=== PATIENT | female | born 1945 | race African-American/Black ===

== ENCOUNTER 2020-03-20 20:21 | Inpatient (IN) | payer OTHER ==
[~2020-03-20] VITALS: Ht 160 cm; Wt 74.8 kg
--- NOTE | 2020-03-20 20:30 | NUR ---
Dr. Biggs at bedside for MSE.
--- NOTE | 2020-03-20 20:33 | NUR ---
Called Yaquelin CHINCHILLA PET for pt psych evaluation.
[2020-03-20] MEDS ORDERED: ACET-2605 PO (20:48)
[2020-03-20] MEDS ORDERED: LOSA100T3 PO (20:48)
[2020-03-20] MEDS ORDERED: AMLO5TAB4 PO (20:48)
[2020-03-20] MEDS ORDERED: POTA20TA10 PO (20:48)
[2020-03-20] MEDS ORDERED: CEPH-569 PO (20:48)
[2020-03-20] MEDS ORDERED: FAMO-132 PO (20:48)
[2020-03-20 20:53] LABS: CREATININE 1.3 mg/dL (0.6-1.3); POTASSIUM 3.8 mmol/L (3.5-5.1)
--- NOTE | 2020-03-20 20:58 | NUR ---
Pt medically cleared by Dr. Biggs.
--- NOTE | 2020-03-20 21:14 | NUR ---
Yaquelin Alston RN PET arrived to ER for Pt psych eval.
[2020-03-20] MEDS ORDERED: NITROFURANTOIN/NITROFURAN MAC 100 MG CAPSULE ONE (21:23)
[2020-03-20] MEDS ORDERED: NITROFURANTOIN/NITROFURAN MAC 100 MG CAPSULE PO ONE (21:30)
--- NOTE | 2020-03-20 22:08 | NUR ---
Derrick sweeney in [facility] - 03/20/20 at 2216 by LIO report given to Otis CHILDRESS.
--- NOTE | 2020-03-20 22:08 | NUR ---
Report given to Otis MCNAIR Zeferino.
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
[2020-03-20] MEDS ORDERED: LORAZEPAM 0.5 MG TABLET PO PRN (23:15)
[2020-03-20] MEDS ORDERED: TEMAZEPAM 7.5 MG CAPSULE PO PRN (23:15)
[2020-03-20] MEDS ORDERED: MAGNESIUM HYDROXIDE 30 ML LIQUID UDC PO PRN (23:15)
[2020-03-20] MEDS ORDERED: MAG HYDROX/AL HYDROX/SIMETH 30 ML LIQUID UDC PO PRN (23:15)
[2020-03-21 07:30] VITALS: BP 127/82
[2020-03-21 10:38] LABS: *BILIRUBIN,URIN NEGATIVE (NEGATIVE); *BLOOD, URINE NEGATIVE (NEGATIVE); *CLARITY,URINE SLIGHTLY CLOUDY (CLEAR); *COLOR,URINE YELLOW (YELLOW); *KETONES,URINE NEGATIVE (NEGATIVE); *UROBILINOGEN,URINE 0.2 E.U./dl (NORMAL); LEUKOCYTE ESTERASE ,URINE 2+ (NEGATIVE); NITRITE, URINE NEGATIVE (NEGATIVE); PH,URINE 5.5 (5.0-8.0); UGLUCOSE NEGATIVE (NEGATIVE)
[2020-03-21] MEDS: NITROFURANTOIN/NITROFURAN MAC 100 MG CAPSULE PO SCH ×2 (12:38→21:55)
--- NOTE | 2020-03-21 12:45 | NUR ---
WOUND CARE CONSULT: PT PRESENTS WITH SUTURED LACERATION TO LEFT WRIST, PRESENT ON ADMISSION. PRIMARY CARE PROVIDER Macie WELLINGTON EXAMINED PT. NO ERYTHEMA, DRAINAGE OR TENDERNESS NOTED. NURSES OBSERVING DAILY. CURRENT EVERT SCORE IS 22. WILL SEE PRN. Addendum: 03/21/20 at 1246 by OSVALDO ALBERTO RN Amended: Links added.
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
--- NOTE | 2020-03-21 14:45 | NUR ---
XAVIER Family Contact: SW spoke with patient's son Mathew Velazquez ([phone]) and collected collateral information. Mathew stated that the patient [place] with him [place] [address] [place] [address] and will be returning upon discharge. Discussed mcc placement options, however, explained that this advertising writer will request placement from the patient's insurance- [employer], and will inform Mathew if they will authorize. Mathew stated that he will sheepskin pickler the patent and take her home when needed.
--- NOTE | 2020-03-21 14:45 | NUR ---
XAVIER Initial Discharge Plan: Patient currently resides with her son Mathew Velazquez ([phone]) at home [id number] [place] [id number]. Patient will be returning back home upon discharge. XAVIER will continue to work with patient, family, and MD to ensure a safe and proper discharge plan.
--- NOTE | 2020-03-21 14:48 | NUR ---
Social Work Firearms Report (DO[employer]): Tool Room Machinist completed and submitted a [employer] firearms report for 5150 danger to self certification. A copy of report has been placed in patient chart.
[2020-03-21 15:23] LABS: BACTERIA,URINE MANY /HPF (NONE SEEN); RBC,URINE 0-3 /HPF (0-3); SQUAMOUS EPITHELIAL CELL,UR FEW /HPF (NONE SEEN); WBC,URINE 80-100 /HPF (0-3)
[2020-03-21 15:32] VITALS: BP 126/71
[2020-03-21 20:00] VITALS: BP 132/76
[2020-03-22 07:30] VITALS: BP 139/81
[2020-03-22] MEDS: NITROFURANTOIN/NITROFURAN MAC 100 MG CAPSULE PO SCH ×2 (08:23→21:02)
[2020-03-22 16:00] VITALS: BP 111/73
[2020-03-22 20:52] VITALS: BP 151/81
[2020-03-22] MEDS: risperiDONE 0.5 MG TABLET PO SCH (23:25)
[2020-03-23 07:30] VITALS: BP 130/77
[2020-03-23] MEDS: NITROFURANTOIN/NITROFURAN MAC 100 MG CAPSULE PO SCH ×2 (08:26→20:06)
[2020-03-23] MEDS: SERTRALINE HCL 50 MG TABLET PO SCH (08:27)
[2020-03-23] MEDS: risperiDONE 0.5 MG TABLET PO SCH ×2 (08:27→20:06)
[2020-03-23 15:10] VITALS: BP 156/76
[2020-03-23] MEDS: ACETAMINOPHEN 325 MG TABLET PO PRN (15:51)
[2020-03-23 19:50] VITALS: BP 141/75
--- NOTE | 2020-03-23 21:16 | NUR ---
Received patient siting in dinning room, watching TV, AAO x3 Calm and cooperative. No SI. No behavioral issues.Compliant with medications. Able to make needs known. Safety measures maintained. Continue to monitor.
[2020-03-24 07:30] VITALS: BP 151/88
[2020-03-24] MEDS: SERTRALINE HCL 50 MG TABLET PO SCH (09:02)
[2020-03-24] MEDS: NITROFURANTOIN/NITROFURAN MAC 100 MG CAPSULE PO SCH ×3 (09:02→21:54)
[2020-03-24] MEDS: risperiDONE 0.5 MG TABLET PO SCH ×3 (09:03→21:54)
--- NOTE | 2020-03-24 10:45 | NUR ---
Received patient awake in bed, in stable condition. Patient participates in activities noted. Patient communicates with other patients well. Denies suicidal and homicidal ideation. Seen and examined by GABRIELLE Meza. no new order. will continue monitor
--- NOTE | 2020-03-24 10:47 | NUR ---
XAVIER UR Note: AUthorization # [id number] Spoke with Catia caseworker intake at [facility] (ph: [phone] fax: [phone]) regarding patient's authorization. XAVIER faxed Catia patient's updated hold status including the 5250, progress notes and medication list. XAVIER also submitted a request for home health order and outpatient psychiatry services. Catia stated she will call this underwriter mortgage loan back today for authorization information.
[2020-03-24 15:01] VITALS: BP 132/76
[2020-03-24 20:19] VITALS: BP 141/77
[2020-03-25 07:30] VITALS: BP 139/74
--- NOTE | 2020-03-25 08:00 | NUR ---
received patien alert orient x3-4, patient calm cooperative compliant with medication, seen participating with group therapy.
[2020-03-25] MEDS: NITROFURANTOIN/NITROFURAN MAC 100 MG CAPSULE PO SCH (08:24)
[2020-03-25] MEDS: SERTRALINE HCL 50 MG TABLET PO SCH (08:25)
[2020-03-25] MEDS: risperiDONE 0.5 MG TABLET PO SCH ×2 (08:25→21:23)
--- NOTE | 2020-03-25 09:46 | NUR ---
WOUND CARE FOLLOW UP: PT SEEN FOR LEFT WRIST SUTURED LACERATION. ORDER RECEIVED FOR SUTURE REMOVAL. SUTURES REMOVED. PT TOLERATED WELL. SCANT PINK DRAINAGE NOTED FROM ONE AREA. RECOMMENDATIONS MADE FOR WOUND CARE AND SKIN PROTECTION. DISCUSSED WITH NURSING STAFF. WILL SEE PRN. SHULTZ IN AGREEMENT WITH PLAN OF CARE.
--- NOTE | 2020-03-25 09:46 | NUR ---
seen by wound nurse, removed stitch , patient tolerated the procedure, cleanse the wound, denies pain , will monitor
[2020-03-25] MEDS: ACETAMINOPHEN 325 MG TABLET PO PRN (13:01)
[2020-03-25 15:00] VITALS: BP 155/82
[2020-03-25] MEDS: NEOMY/BACITRAC/POLYMI OINT 28.35 GM TUBE TOP SCH (16:04)
--- NOTE | 2020-03-25 18:10 | NUR ---
patient remain calm cooperative no distress, denies SI
[2020-03-25 20:35] VITALS: BP 150/77
--- NOTE | 2020-03-26 04:01 | NUR ---
GPS/ PT A/O X2, CONFUSE BUT ABLE TO MAKE NEEDS KNOWN VERBALLY. DENIED SI, OR INTENT. MONITOR PT WRIST FOR CHANGES AND NO NEW ABNORMAL NOTED. PT WOUND SUTURE WAS REMOVED AND ON CONTINUE ATB OINTMENT TX. COOPERATIVE WITH ROUTINE MEDICATION AND CONTINUE MONITOR.
[2020-03-26 07:30] VITALS: BP 147/80
[2020-03-26] MEDS: SERTRALINE HCL 50 MG TABLET PO SCH (08:55)
[2020-03-26] MEDS: risperiDONE 0.5 MG TABLET PO SCH ×2 (08:55→21:27)
[2020-03-26] MEDS: NEOMY/BACITRAC/POLYMI OINT 28.35 GM TUBE TOP SCH ×2 (08:57→18:12)
--- NOTE | 2020-03-26 10:25 | NUR ---
XAVIER UR Note: Authorization # [id number] Spoke with Catia leather case finisher at [facility] (ph: [phone] fax: [phone]) regarding patient's discharge plan for tomorrow. XAVIER also submitted a request for home health order and outpatient psychiatry services. Catia stated she will call this public relations writer back today for appointment information.
--- NOTE | 2020-03-26 10:27 | NUR ---
XAVIER Family Contact: SW left a voicemail for patient's son Mathew Velazquez ([phone]) to arrange picked edge sewing machine operator time for patient's discharge tomorrow. Waiting for a call back.
[2020-03-26 16:00] VITALS: BP 122/62
--- NOTE | 2020-03-26 16:04 | NUR ---
XAVIER UR Note: Spoke with Catia welfare case worker at [facility] (ph: [phone] fax: [phone]) following up with the patient's after care appointments and Catia stated that they have not been arranged yet. Catia stated that she will follow up tomorrow morning before patient's discharge.
[2020-03-26 20:31] VITALS: BP 110/57
[2020-03-26 20:33] VITALS: BP 116/64
[2020-03-27 07:30] VITALS: BP 140/78
[2020-03-27] MEDS: SERTRALINE HCL 50 MG TABLET PO SCH (09:08)
[2020-03-27] MEDS: risperiDONE 0.5 MG TABLET PO SCH (09:10)
[2020-03-27] MEDS: NEOMY/BACITRAC/POLYMI OINT 28.35 GM TUBE TOP SCH (09:11)
--- NOTE | 2020-03-27 11:10 | NUR ---
SW Discharge Note: Patient will be discharged back home today [address] [place] [address] ([phone]). Patients son, Mathew Velazquez ([phone]) is aware of patients discharge plan and will be providing transportation for the patient back home today between 4-4:30PM. Patient is aware and agreeable with discharge plans. Patient denies suicidal or homicidal ideation. Patient presents with euthymic mood and congruent affect. Patient will be following up with his primary care physician Dr. Swain at [address] [place] [address], [address] [place] [address] ([phone]) and has a follow up appointment scheduled on Tuesday March 31, 2020 at 9AM. Catia behavioral health case manager from [facility] ([phone]) arranged for outpatient psychiatric services, which their discharge planning department stated will reach out to the patient post discharge and set up an appointment with [facility] (did not indicate which one). Catia also arranged home health services provided by [facility]ael[facility] ([phone]). Patient was also provided with outpatient mental health resources to [facility] , and the National Suicide Prevention Lifeline .
== END 2020-03-27 16:20 | disposition home or self-care (01) | DRG 881 ==
LOC: ER 20:25 → GPS 22:07
PROVIDERS: ADMIT Psychiatry & Neurology Psychiatry; ATTEND Registered Nurse
DX: F32.9 Major depressive disorder, single episode, unspecified (principal); N39.0 Urinary tract infection, site not specified; S61.512D Laceration without foreign body of left wrist, subsequent encounter; X78.1XXD Intentional self-harm by knife, subsequent encounter; E66.9 Obesity, unspecified; Z87.891 Personal history of nicotine dependence; F29 Unspecified psychosis not due to a substance or known physiological condition; R79.89 Other specified abnormal findings of blood chemistry; Z68.29 Body mass index [BMI] 29.0-29.9, adult
CPT/HCPCS: 36415; 87086; 93005; A4663